=== PATIENT | male | born 1980 | race Caucasian/White ===

== ENCOUNTER → 2021-04-19 | Outpatient (CLI) | payer OTHER ==
--- NOTE | 2021-04-20 03:19 | MR ---
EXAMINATION TYPE: MR danish/lspine wo con DATE OF EXAM: 04/19/2021 COMPARISON: None HISTORY: Mid and low back pain that goes down legs Multiplanar multiecho imaging of the thoracic and lumbar spine without contrast. Thoracic vertebrae are normal alignment. Disc spaces are fairly normal. Thoracic spinal cord shows no rmal signal pattern. There is no edema. There is no evidence of thoracic spinal stenosis. There is no thoracic paraspinal mass. Posterior elements of the thoracic spine appear intact. The thoracic vertebrae have fairly normal spacing and alignment. Posterior elements are intact. Neura l foramina are widely patent. There is no spinal stenosis. There is developmentally adequate spinal c anal. Lumbar nerve roots appear normal. The sacroiliac joints appear intact. There is no lumbar andrea marco antonio mass. IMPRESSION: Negative MRI scan of the thoracic and lumbar spine. No evidence of any significant arthritic disease. No spinal stenosis. No disc herniation.
== END | disposition home or self-care (01) ==
LOC: RADMRIMAIN 20:29
PROVIDERS: ATTEND Nurse Practitioner Family
DX: M54.50 Low back pain, unspecified (principal)
CPT/HCPCS: 72146; 72148

== ENCOUNTER → 2022-11-12 | Outpatient (CLI) | payer OTHER ==
--- NOTE | 2022-11-12 15:33 | US ---
EXAMINATION TYPE: US abdomen limited DATE OF EXAM: 11/12/2022 COMPARISON: NONE CLINICAL INDICATION: Male, 42 years old with history of M79.81 NONTRAUMATIC HEMATOMA OF SOFT TISSUE; recurring bruising at the left lower flank without trauma, bruise comes and comes, area tender when p ressed, small bruise present during this study; pt not NPO TECHNIQUE: Multiple sonographic images of the abdomen are obtained. FINDINGS: EXAM MEASUREMENTS: Spleen: 11.9 cm Left Kidney: 11.4 x 5.5 x 6.0 cm [employer]AMMER [employer]ATER NOTES: None Spleen: wnl Left Kidney: wnl Tattoo Designer notes: Scanned over the area of bruising/tenderness at the left lower flank, no abnormali ty seen by ultrasound. IMPRESSION: No specific sonographic abnormality while scanning along the left upper quadrant and left flank at th e site of patient's bruising.
== END | disposition home or self-care (01) ==
LOC: RADUSWWP 09:46
PROVIDERS: ATTEND Family Medicine
DX: M79.81 Nontraumatic hematoma of soft tissue (principal)
CPT/HCPCS: 76705

== ENCOUNTER → 2022-12-15 | Outpatient (CLI) | payer OTHER ==
--- NOTE | 2022-12-15 12:45 | XR ---
EXAMINATION TYPE: XR shoulder complete LT DATE OF EXAM: 12/15/2022 12:41 PM INDICATION: Patient age:Male; 42 years old; Reason for study: [id number] LT SHLD PAIN; COMPARISON: None TECHNIQUE: The left shoulder was examined in AP, internally rotated and scapular Y projections. . FINDINGS: No evidence of acute osseous pathology, joint dislocation, or soft tissue swelling. The remaining por tions of the visualized chest are unremarkable. IMPRESSION: No acute osseous pathology.
== END | disposition home or self-care (01) ==
LOC: RADXRYALE 12:23
PROVIDERS: ATTEND Physician Assistant
DX: M25.512 Pain in left shoulder (principal)

== ENCOUNTER → 2022-12-24 | Outpatient (CLI) | payer OTHER ==
--- NOTE | 2022-12-24 22:17 | MR ---
EXAMINATION TYPE: MR shoulder LT wo con DATE OF EXAM: 12/24/2022 COMPARISON: Left shoulder x-rays December 15, 2022 HISTORY: Left shoulder pain, decreased ROM. TECHNIQUE: Multiplanar, multisequence imaging of the left shoulder is performed without contrast. FINDINGS: Rotator Cuff: Intact supraspinatus and infraspinatus tendons. Intact subscapularis tendon. Rotator cu ff muscle bulk is preserved. Acromioclavicular Joint: Acromioclavicular joint appears within normal limits. Glenohumeral Joint: Small joint effusion. No significant spurring. Labrum: The labrum appears grossly intact given limitation of non-arthrogram study. Biceps Tendon: The long head of biceps is in normal location within bicipital groove. Bone marrow signal: No focal abnormal marrow signal is appreciated. Other: No additional significant abnormality is appreciated. IMPRESSION: No rotator cuff or labral tear is seen.
== END | disposition home or self-care (01) ==
LOC: RADMRIMAIN 14:11
PROVIDERS: ATTEND Family Medicine
DX: M25.512 Pain in left shoulder (principal)

== ENCOUNTER → 2023-06-03 | Outpatient (CLI) | payer OTHER ==
--- NOTE | 2023-06-03 12:29 | XR ---
EXAMINATION TYPE: XR chest 2V DATE OF EXAM: 06/03/2023 COMPARISON: None HISTORY: 43-year-old male [id number], cough TECHNIQUE: Frontal and lateral views FINDINGS: The cardiomediastinal silhouette, aorta, and pulmonary vasculature are within normal limits. Lungs an d pleural spaces are clear. IMPRESSION: No acute cardiopulmonary process.
== END | disposition home or self-care (01) ==
LOC: RADXRYALE 12:02
PROVIDERS: ATTEND Physician Assistant
DX: R05.9 Cough, unspecified (principal)
CPT/HCPCS: 71046